=== PATIENT | male | born 1990 | race Caucasian/White ===

== ENCOUNTER 2023-01-18 22:09 | Emergency (ER) | payer MEDICARE, OTHER, SELFPAY ==
[2023-01-18 22:13] VITALS: BP 154/95; PULSE 95; RESP 18; TEMP 36.3; O2SAT 100; BMI 28.7
[2023-01-19] MEDS: Tetracaine HCl/PF 0.5% Oph Sol 4 ML DROPS 3 DROP EYE-RIGHT (02:35)
[2023-01-19] MEDS: Fluorescein Sodium STRIP 1 STRIP EYE-RIGHT (02:35)
--- NOTE | 2023-01-19 02:50 | ED.EYEPROB ---
HPI - Eye Problem General Chief complaint: Eye Problems Stated complaint: FB in R eye Time Seen by Provider: 01/19/23 02:10 Source: patient Mode of arrival: ambulatory Limitations: no limitations History of Present Illness HPI Narrative: Patient working under car and small metal dust went to his right eye earlier today since then having watering eye and pain in the right eye Related Data Previous Rx's Medication Instructions Recorded ketotifen fumarate 0.025 % (0.035 1 drp ophthalmic-Left Q12H PRN 01/19/23 %) eye drops ([place]) pain (scale score 1-3) #5 mL tobramycin 0.3 % eye drops 2 drp ophthalmic-Left Q4H #5 mL 01/19/23 Allergies Allergy/AdvReac Type Severity Reaction Status Date / Time No Known Allergies Allergy Verified 01/19/23 02:10 Review of Systems Review of Systems: Yes all other systems are reviewed and are negative [facility] Social History Social History Advance Directives: No Advance Directives Information Provided: Yes Physical Exam Vital Signs: Vital Signs: Last Vital Signs Temp 97.3 F 01/18/23 22:13 Pulse 95 01/18/23 22:13 Resp 18 01/18/23 22:13 BP 154/95 H 01/18/23 22:13 Pulse Ox 100 01/18/23 22:13 O2 Del Method Room Air 01/18/23 22:13 BMI result Body Mass Index 28.7 Eyes: Periorbital: periorbital findings normal Eyelids: Yes eyelids normal Conjunctivae: conjunctivae normal Sclerae: sclerae normal Corneas: fluorescein used Pupils: Equal, round and reactive pupils present EOM: EOMs intact bilaterally Direct Ophthalmoscopy: normal light reflex, no papilledema and fundi normal bilaterally Eyes/upper lids images: 1. Small metallic foreign body Neuro: Cranial nerves: Yes Equal, round and reactive pupils present Medications Administered Discontinued Medications Generic Name Dose Route Start Last Admin Trade Name Freq PRN Reason Stop Dose Admin Fluorescein Sodium 1 strip 01/19/23 02:10 01/19/23 02:35 Fluorescein Sodium Strip EYE-RIGHT 01/19/23 02:11 1 strip ONCE ONE Administration Tetracaine HCl 3 drop 01/19/23 02:10 01/19/23 02:35 Tetracaine Hcl/Pf 0.5% Oph Mariann 4 Ml Drops EYE-RIGHT 01/19/23 02:11 3 drop ONCE ONE Administration Tobramycin Sulfate 2 drop 01/19/23 02:10 01/19/23 02:36 Tobramycin Sulfate 0.3% Mariann Op 5 Ml Btl EYE-RIGHT 01/19/23 02:11 Not Given ONCE ONE Medical Decision Making Medical Decision Making MDM Narrative: Patient had some a no small metal dust was removed completely post fluorescein stain showed abrasion which was expected. Discharge patient home on tobramycin eyedrops patient up-to-date on tetanus shot received 3 years ago Procedures FB Removal Eye Time Out performed: Yes Location: eye (R) Topical anesthetic used: tetracaine Foreign body: metal Evidence of corneal penetration: Yes Technique: needle Procedure performed under: direct visualization with magnification Post-procedure medication: ophthalmic antibiotic and topical anesthetic Patient tolerated procedure: well Discharge Plan Discharge Clinical Impression: Acute foreign body of right cornea Patient Disposition: Home, Self-Care Instructions: Corneal Abrasion (ED), Eye Foreign Body (ED) Additional Instructions: foreign body has been removed from the right cornea Now you have corneal abrasion, use antibiotic eyedrops every 4-6 hours to avoid infection Follow-up with eye doctor Prescriptions: New tobramycin 0.3 % drops 2 drp ophthalmic-Left Q4H Qty: 5 0RF ketotifen fumarate [[place]] 0.025 % (0.035 %) drops 1 drp ophthalmic-Left Q12H PRN (Reason: pain (scale score 1-3)) Qty: 5 0RF Referrals: Alfonzo Hardin [Physician] - 3 days Interventions: ED Discharge Assessment Last Done: 01/19/23 02:53 Discharge Date/Time: 01/19/23 02:53
== END 2023-01-19 02:53 | disposition home or self-care (01) ==
PROVIDERS: Emergency Provider Internal Medicine; PCP Internal Medicine
DX: T15.01XA Foreign body in cornea, right eye, initial encounter (principal); X58.XXXA Exposure to other specified factors, initial encounter
CPT/HCPCS: 65220; 99282; 99283; 99284